=== PATIENT | male | born 1985 | race Caucasian/White ===

== ENCOUNTER 2019-10-08 08:36 | Inpatient (IN) ==
[2019-10-08] MEDS ORDERED: ONDANSETRON INJ 2 MG/ML 2 ML VIAL IV STA (09:06)
[2019-10-08] MEDS ORDERED: MoRPHine SULFATE 4 MG/ML 1 ML CARP\\VIAL IV STA ×2 (09:06→12:36)
--- NOTE | 2019-10-08 09:11 | Emergency Department Note ---
Impression & Plan Acute pancreatitis, Hypokalemia, Abdominal pain ED Provider Note CHIEF COMPLAINT: Abdominal pain, nausea and vomiting HISTORY OF PRESENTING ILLNESS: This is a 34-year-old male who presents to the emergency department by private vehicle with complaint of upper abdominal pain with nausea and vomiting for the past 2 days. Patient states he felt unwell over the weekend on Sunday, but then felt better on Sunday. He notes that his last bowel movement was on Sunday and he has been feeling constipated. He has been taking MiraLAX, noting that he has taken half a bottle over the past few days, as well as stool softeners, and he tried an enema last night, with no improvement in his pain and no bowel movement. He states the pain is constant, across the upper abdomen and most severe in the epigastric region, and rates the pain a 7/10. He has also tried Pepto-Bismol and [id number] nausea medicine without improvement. He denies any fevers or chills. He denies any chest pain, shortness of breath, cough or URI symptoms. He denies any recent travel, known sick contacts or concerns for COVID-19. He denies urinary symptoms or unusual rash. REVIEW OF SYSTEMS: A complete 10 point review of systems was reviewed with the patient with pertinent positives and negatives as per history of present illness. All else were negative. PAST MEDICAL HISTORY: Hypertension, GERD SOCIAL HISTORY: Lives at home, he is a smoker, lives in [place], but has been visiting for the past month with family ALLERGIES: Reviewed in chart and with the patient PHYSICAL EXAM: CONSTITUTIONAL: Pleasant and cooperative. Nontoxic-appearing and in no acute distress, but appears uncomfortable from the pain. Mildly dehydrated. HEENT: Normocephalic, atraumatic. Pharynx normal. Tacky mucous membranes. NECK: Supple, full active range of motion without discomfort. RESPIRATORY: Clear to auscultation bilaterally with no wheezing, crackles, rhonchi or stridor. Equal expansion bilaterally. CARDIOVASCULAR: Regular rate and rhythm with no murmurs, rubs or gallops. Normal peripheral perfusion. No edema. GASTROINTESTINAL: Tender to palpation in the epigastric region and left upper quadrant, mildly tender in the right upper quadrant. The abdomen is otherwise nontender, soft, slightly distended. Obese abdomen. No palpable masses or HSM. Bowel sounds present in all quadrants. No CVA tenderness bilaterally. MUSCULOSKELETAL: Full range of motion of all joints without discomfort. INTEGUMENTARY: No rash or other significant dermatologic conditions noted. NEUROLOGIC: Alert and oriented X 4 with normal affect. Normal strength and sensation in all 4 extremities. Normal speech. Normal gait observed. ED COURSE AND MEDICAL DECISION MAKING: CC: Patient presenting with complaint of abdominal pain, nausea and vomiting DIFFERENTIAL DIAGNOSIS: Includes, but not limited to gastroenteritis, gas tritis, peptic ulcer disease, GERD, pancreatitis, cholecystitis, cholelithiasis, small bowel obstruction, infectious colitis, constipation, fecal impaction, among others. INTERPRETATION OF LABS: Marked leukocytosis with left shift, no anemia, normal platelets, mild hypokalemia, no other significant electrolyte abnormalities, normal renal function, normal liver enzymes and lipase. Troponin is und etectable. UA shows protein, ketones, and blood, with no evidence for infection. IMAGING: CT OF THE ABDOMEN AND PELVIS WITH CONTRAST CLINICAL HISTORY: Abdominal pain, nausea and vomiting. Constipation. COMPARISON STUDY: None. TECHNIQUE: Following IV administration of 93 mL of Optiray-320, axial images of the abdomen and pelvis were obtained from the lung bases to the proximal femurs. Images were reviewed in the axial, sagittal, and coronal planes. IV contrast was administered without complication. Automated exposure control was utilized for the study. A dose lowering technique was utilized adhering to the principles of ALARA. CT DOSE: 1634.58 mGy.cm FINDINGS: Lung bases are unremarkable. No pneumatosis, free air or portal venous gas is present. There is fatty infiltration of the liver. No biliary or pancreatic ductal dilatation is noted. There is mild infiltration adjacent to the pancreatic tail. There is slight prominence of the pancreatic tail. No peripancreatic fluid collection is noted. The gland enhances homogeneously. The spleen, adrenal glands and kidneys are normal. There is no hydronephrosis or hydroureter. No pericholecystic infiltration is present. There is no evidence for a bowel obstruction. The caliber and wall thickness of small and large bowel are normal the appendix is normal. There is mild infiltration of the subcutaneous tissues of the lower back which probably reflects soft tissue edema. A tiny metallic density is noted along the superficial aspect of the paraspinal musculature. There are bilateral L5 pars defects without significant anterolisthesis of L5 on S1. Suspected central canal stenosis at L3-L4 suboptimally assessed by CT. There is suspected disc bulges at L4-L5. IMPRESSION: 1. Mild infiltration adjacent to the pancreatic tail. This suggests acute pancreatitis. 2. Normal appendix. No bowel obstruction. 3. Fatty infiltration of the liver. 4. Multilevel degenerative changes within lumbar spine with suspected central canal stenosis at L3-L4 which is suboptimally assessed by CT. ----- US gallbladder HISTORY: Pain. Nausea. epigastric pain COMPARISON: None. FINDINGS: Gallbladder is normal. Common bile duct 5 mm. Fatty infiltration of liver. Pancreas is unremarkable. The right kidney is negative for hydronephrosis. IMPRESSION: 1. Fatty infiltration of liver. 2. Otherwise negative study. EKG: Shows normal sinus rhythm with a rate of 93 bpm, normal intervals, no ST or T wave abnormalities, no ectopy by my interpretation. No previous EKG available for comparison. MEDICATION RECONCILIATION: I attest that I have personally reviewed the patient's current medication list. INITIAL VITAL SIGNS REVIEW: I reviewed the patient's initial vital signs and interpret them as follows: T: Afebrile; BP: Hypertensive; HR: Tachycardic; RR: Within normal limits; Pulse Ox: Within normal limits on room air. Blood pressure screening: The patient was found to have an elevated blood pressure and was referred to the inpatient team for further management. MDM SUMMARY: Patient was evaluated at bedside, history and physical exam performed. Patient is alert and oriented, in no acute distress, resting calmly in stretcher. Patient is afebrile and nontoxic-appearing, but does appear to be uncomfortable from pain. He is significantly tender to palpation in the epigastric and left upper quadrant, the remainder of the abdomen is benign. No acute abdomen. Cardiac monitoring: An order was placed for continuous cardiac monitoring. The monitor shows a rate of 91 bpm with normal sinus rhythm. An EKG was reviewed at bedside noting normal sinus rhythm with no acute ischemic changes. Orders were placed at bedside for labs, UA, IV fluid bolus for hydration, IV morphine for pain, IV Zofran for nausea, CT abdomen/pelvis with IV contrast to evaluate for this abdominal pain. Patient discussed with Dr. Antonio, who agrees with my assessment, plan, and disposition. Labs and imaging reviewed as above, labs notable for a marked leukocytosis with left shift, otherwise fairly unremarkable. Liver enzymes and lipase are all normal. Troponin is undetectable. Additional orders were placed for blood cultures, lactic acid, and empiric antibiotics IV Cipro and Flagyl. CT imaging reviewed, noting infiltration around the pancreatic tail suggestive of acute pancreatitis and otherwise unremarkable. An ultrasound of the gallbladder was also performed, which did not show any acute gallbladder abnormalities. Given the patient's significant leukocytosis in the setting of acute pancreatitis, I did feel that he would benefit from hospitalization. I spoke with the hospitalist team, who agrees to evaluate the patient for admission. Patient reassessed multiple times throughout ED stay, he has remained hemodynami romie stable and afebrile, and his pain is improved with IV morphine. He has not had any further vomiting. The patient was updated on all results and plan for admission, he verbalized understanding and was agreeable to this plan. The patient was stable at time of admission. The chart was completed utilizing [employer] Speech voice recognition software. Grammatical errors, random word insertions, pronoun errors, and incomplete sentences are an occasional consequence of this system due to software limitations, ambient noise, and hardware issues. Any formal questions or concerns about the content, text, or information contained within the body of this dictation should be directly addressed to the nurse practitioner for clarification. Past Med/Surg History Medical History (Updated 10/08/19 @ 17:13 by GERMAIN Alfredo) GERD (gastroesophageal reflux disease) Hypertension Obesity (BMI 30-39.9) Surgical History (Updated 10/08/19 @ 14:19 by Jennifer Sidhu MD) History of herniorrhaphy Previous back surgery Family History (Updated 10/08/19 @ 14:19 by Jennifer Sidhu MD) Grandmother Heart disease Social History Preferred Language: Hebrew Communication Ability: Effective Screening Nurse Required: No Beliefs That Will Affect Care: None Current Living Situation: Alone Other Information That Helps Us Care for You: No Feels Safe at Home: Yes Smoking Status: Current every day smoker Tobacco Type: cigars ; Cigarettes Per Day: 1 cigar/day ; Do You Dip or Chew Tobacco: No ; Second Hand Exposure: Yes ; Tobacco Cessation Education Requested by Patient: No Hx Alcohol Use: Yes Alcohol type: beer Hx Substance Use: Yes substance use type: marijuana Last Used Substance: Unknown Allergies Allergies Allergy/AdvReac Type Severity Reaction Status Date / Time amoxicillin AdvReac Intermediate Nausea Verified 10/08/19 13:02 Home Meds Home Medications Medication Instructions Recorded Confirmed cyclobenzaprine 10 mg PO DIRECTED PRN 10/08/19 10/08/19 hydrochlorothiazide 25 mg PO QAM 10/08/19 10/08/19 lisinopril 40 mg PO DAILY 10/08/19 10/08/19 pantoprazole 40 mg PO DAILY 10/08/19 10/08/19 Results & Data (ED) Vital Signs Vital Signs - 24 hr 10/08/19 08:41 10/08/19 09:54 10/08/19 09:55 Temperature 36.8 C Temperature Source Oral Pulse Rate 103 H Pulse Rate [Finger] 80 Pulse Rate from SpO2 Sensor Pulse Rhythm [Finger] Pulse Strength [Finger] Respiratory Rate 20 20 Respiratory Effort / Characteristics Respiratory Depth Respiratory Pattern Blood Pressure 161/105 H Blood Pressure [Left Arm] 148/87 H Blood Pressure Mean 123 Blood Pressure Mean [Left Arm] 107 Pulse Oximetry 99 98 98 Oxygen Delivery Method Room Air Room Air Sepsis Recent Fever Within 48 Hours No Sepsis New/Unexplained Change in Mental Status No Sepsis Action Taken by Nursing No Action Required 10/08/19 11:10 10/08/19 11:13 10/08/19 11:30 Temperature Temperature Source Pulse Rate 81 77 Pulse Rate [Finger] 83 Pulse Rate from SpO2 Sensor 81 76 Pulse Rhythm [Finger] Regular Pulse Strength [Finger] Normal Respiratory Rate 16 18 13 Respiratory Effort / Characteristics Non-Labored Spontaneous Respiratory Depth Normal Respiratory Pattern Regular Blood Pressure 130/91 122/94 Blood Pressure [Left Arm] 130/91 Blood Pressure Mean 101 103 Blood Pressure Mean [Left Arm] 104 Pulse Oximetry 97 97 98 Oxygen Delivery Method Room Air Room Air Room Air Sepsis Recent Fever Within 48 Hours Sepsis New/Unexplained Change in Mental Status Sepsis Action Taken by Nursing 10/08/19 12:30 Temperature Temperature Source Pulse Rate 81 Pulse Rate [Finger] Pulse Rate from SpO2 Sensor 83 Pulse Rhythm [Finger] Pulse Strength [Finger] Respiratory Rate 9 L Respiratory Effort / Characteristics Respiratory Depth Respiratory Pattern Blood Pressure 150/102 H Blood Pressure [Left Arm] Blood Pressure Mean 114 Blood Pressure Mean [Left Arm] Pulse Oximetry 98 Oxygen Delivery Method Sepsis Recent Fever Within 48 Hours Sepsis New/Unexplained Change in Mental Status Sepsis Action Taken by Nursing Laboratory Data Result diagrams: 10/08/19 09:24 10/08/19 09:24 Lab Results 10/08/19 10/08/19 10/08/19 Range/Units 09:24 09:24 09:33 WBC 29.27 H (4.8-10.8) K/uL RBC 5.82 (4.7-6.1) M/uL Hgb 17.6 (14.0-18.0) g/dL Hct 50.6 (42-52) % MCV 86.9 (80-100) fL MCH 30.2 (25-34) pg MCHC 34.8 (32-36) g/dL RDW Std Deviation 47.0 H (36.4-46.3) fL RDW Coeff of [place] 14.9 H (11.5-14.5) % Plt Count 347 (130-400) K/uL MPV 11.5 H (7.4-10.4) fL Immature Gran % (Auto) 1.0 % Neut % (Auto) 75.6 % Lymph % (Auto) 13.2 % [place] % (Auto) 10.0 % Eos % (Auto) 0.1 % Baso % (Auto) 0.1 % Neut # (Auto) 22.11 H (1.4-6.5) K/uL Lymph # (Auto) 3.86 H (1.2-3.4) K/uL [place] # (Auto) 2.92 H (0.11-0.59) K/uL Eos # (Auto) 0.04 (0-0.5) K/uL Baso # (Auto) 0.04 (0-0.2) K/uL Immature Gran # (Auto) 0.30 H (0.00-0.02) K/uL Sodium 137 (136-145) mmol/L Potassium 3.3 L (3.5-5.1) mmol/L Chloride 102 (98-107) mmol/L Carbon Dioxide 27 (21-32) mmol/L Anion Gap 8.0 (3-11) BUN 11 (7-18) mg/dl Creatinine 0.99 (0.6-1.4) mg/dl Est Cr Clr Drug Dosing 141.5 ml/min Est GFR ( Amer) 114.7 Est GFR (Non-Af Amer) 99.0 BUN/Creatinine Ratio 10.9 (10-20) Glucose 125 H (70-99) mg/dl Lactate (0.4-2.0) mmol/L Calcium 9.7 (8.5-10.1) mg/dl Magnesium 2.2 (1.8-2.4) mg/dl Total Bilirubin 0.7 (0.2-1) mg/dl AST 9 L (15-37) U/L ALT 29 (12-78) U/L Alkaline Phosphatase 78 (45-117) U/L Troponin I < 0.015 (0-0.045) ng/ml Total Protein 8.4 H (6.4-8.2) gm/dl Albumin 4.2 (3.4-5.0) gm/dl Globulin 4.2 H (2.5-4.0) gm/dl Albumin/Globulin Ratio 1.0 (0.9-2) Triglycerides 154 H (0-150) mg/dl Lipase 132 (73-393) U/L Urine Color Urine Appearance (Clear) Urine pH (4.5-7.5) Ur Specific [place] (1.000-1.030) Urine Protein (Negative) Urine Glucose (UA) (Negative) Urine Ketones (Negative) Urine Blood (Negative) Urine Nitrite (Negative) Urine Bilirubin (Negative) Urine Urobilinogen (Negative) Ur Leukocyte Esterase (Negative) Urine WBC (Auto) (0-5) /hpf Urine RBC (Auto) (0-4) /hpf U Hyaline Cast (Auto) (0-5) /lpf U Epithel Cells (Auto) (0-5) /lpf Urine Bacteria (Auto) (Negative) 10/08/19 10/08/19 Range/Units 09:55 12:38 WBC (4.8-10.8) K/uL RBC (4.7-6.1) M/uL Hgb (14.0-18.0) g/dL Hct (42-52) % MCV (80-100) fL MCH (25-34) pg MCHC (32-36) g/dL RDW Std Deviation (36.4-46.3) fL RDW Coeff of [place] (11.5-14.5) % Plt Count (130-400) K/uL MPV (7.4-10.4) fL Immature Gran % (Auto) % Neut % (Auto) % Lymph % (Auto) % [place] % (Auto) % Eos % (Auto) % Baso % (Auto) % Neut # (Auto) (1.4-6.5) K/uL Lymph # (Auto) (1.2-3.4) K/uL [place] # (Auto) (0.11-0.59) K/uL Eos # (Auto) (0-0.5) K/uL Baso # (Auto) (0-0.2) K/uL Immature Gran # (Auto) (0.00-0.02) K/uL Sodium (136-145) mmol/L Potassium (3.5-5.1) mmol/L Chloride (98-107) mmol/L Carbon Dioxide (21-32) mmol/L Anion Gap (3-11) BUN (7-18) mg/dl Creatinine (0.6-1.4) mg/dl Est Cr Clr Drug Dosing ml/min Est GFR ( Amer) Est GFR (Non-Af Amer) BUN/Creatinine Ratio (10-20) Glucose (70-99) mg/dl Lactate 1.3 (0.4-2.0) mmol/L Calcium (8.5-10.1) mg/dl Magnesium (1.8-2.4) mg/dl Total Bilirubin (0.2-1) mg/dl AST (15-37) U/L ALT (12-78) U/L Alkaline Phosphatase (45-117) U/L Troponin I (0-0.045) ng/ml Total Protein (6.4-8.2) gm/dl Albumin (3.4-5.0) gm/dl Globulin (2.5-4.0) gm/dl Albumin/Globulin Ratio (0.9-2) Triglycerides (0-150) mg/dl Lipase (73-393) U/L Urine Color Dark Yellow Urine Appearance Clear (Clear) Urine pH 5.5 (4.5-7.5) Ur Specific [place] 1.023 (1.000-1.030) Urine Protein 2+ H (Negative) Urine Glucose (UA) Negative (Negative) Urine Ketones Trace H (Negative) Urine Blood Trace H (Negative) Urine Nitrite Negative (Negative) Urine Bilirubin Negative (Negative) Urine Urobilinogen Negative (Negative) Ur Leukocyte Esterase Negative (Negative) Urine WBC (Auto) 1-5 (0-5) /hpf Urine RBC (Auto) 5-10 H (0-4) /hpf U Hyaline Cast (Auto) 5-10 H (0-5) /lpf U Epithel Cells (Auto) 10-20 H (0-5) /lpf Urine Bacteria (Auto) Negative (Negative) Administered Medications Lactated Ringer's (Lr) 1,000 mls @ 200 mls/hr IV .Q5H LUCIUS Stop: 11/07/19 18:05 Last Infusion: 10/08/19 19:21 Dose: 200 mls/hr Documented by: [id number] Admin: 10/08/19 18:26 Dose: 200 mls/hr Documented by: [id number] Potassium Chloride (K Alan / Wtr) 10 meq in 100 mls @ 100 mls/hr IV Q1H LUCIUS Stop: 10/08/19 22:29 Last Admin: 10/08/19 20:07 Dose: 75 mls/hr Documented by: [id number] Infusion: 10/08/19 20:03 Dose: 75 mls/hr Documented by: [id number] Admin: 10/08/19 18:43 Dose: 75 mls/hr Documented by: [id number] Ketorolac Tromethamine (Toradol) 15 mg IM Q8H PRN PRN Reason: Moderate Pain Stop: 10/13/19 18:53 Last Admin: 10/08/19 19:41 Dose: 15 mg Documented by: [id number] Morphine Sulfate (Morphine Sulfate) 2 mg IV Q6H PRN PRN Reason: Moderate Pain Stop: 10/22/19 18:05 Last Admin: 10/08/19 18:26 Dose: 2 mg Documented by: [id number] Ondansetron HCl (Zofran) 4 mg IV Q6H PRN PRN Reason: Nausea Stop: 11/07/19 14:00 Last Admin: 10/08/19 18:26 Dose: 4 mg Documented by: [id number] Discontinued Medications Sodium Chloride (Nss 1000ml) 1,000 mls @ 999 mls/hr IV .Q1H1M LUCIUS Stop: 10/08/19 10:15 Last Infusion: 10/08/19 11:09 Dose: 0 mls/hr Documented by: [id number] Admin: 10/08/19 09:51 Dose: 999 mls/hr Documented by: [id number] Sodium Chloride (Nss 1000ml) 1,000 mls @ 999 mls/hr IV .Q1H1M ONE Stop: 10/08/19 13:36 Last Infusion: 10/08/19 15:42 Dose: 0 mls/hr Documented by: [id number] Admin: 10/08/19 14:31 Dose: 999 mls/hr Documented by: [id number] Ciprofloxacin (Cipro) 400 mg in 200 mls @ 200 mls/hr IV NOW STA Stop: 10/08/19 13:54 Last Infusion: 10/08/19 16:10 Dose: 0 mls/hr Documented by: [id number] Admin: 10/08/19 14:31 Dose: 200 mls/hr Documented by: [id number] Metronidazole (Flagyl) 500 mg in 100 mls @ 100 mls/hr IV NOW STA Stop: 10/08/19 13:54 Last Infusion: 10/08/19 15:42 Dose: 0 mls/hr Documented by: [id number] Admin: 10/08/19 14:31 Dose: 100 mls/hr Documented by: [id number] Ioversol (Optiray 320 100ml) 93 ml IV ONCE PRN PRN Reason: Interaction Checking Stop: 10/12/19 10:23 Last Admin: 10/08/19 10:25 Dose: 93 ml Documented by: [id number] Morphine Sulfate (Morphine Sulfate) 4 mg IV NOW STA Stop: 10/08/19 09:07 Last Admin: 10/08/19 09:51 Dose: 4 mg Documented by: [id number] Morphine Sulfate (Morphine Sulfate) 4 mg IV NOW STA Stop: 10/08/19 12:37 Last Admin: 10/08/19 14:31 Dose: 4 mg Documented by: [id number] Ondansetron HCl (Zofran) 4 mg IV NOW STA Stop: 10/08/19 09:07 Last Admin: 10/08/19 09:51 Dose: 4 mg Documented by: [id number] Discharge Plan Visit Data *Final* Discharge Date/Time: 10/08/19 17:22 Chief Complaint: Abdominal Pain Stated Complaint: ACUTE ABD PAIN ED Provider: Matilda Antonio ED Midlevel Provider: Jordyn Wheatley Discharge Problem: Acute pancreatitis, Hypokalemia, Abdominal pain Patient Disposition: Admitted As Inpatient Discharge Instructions Interventions: ED Discharge Assessment Last Done: 10/08/19 17:22 Discharge Problem: Acute pancreatitis Qualifiers: Pancreatitis type: unspecified pancreatitis type Acute pancreatitis complic ation: unspecified Qualified Code(s): K85.90 - Acute pancreatitis without necrosis or infection, unspecified Abdominal pain Qualifiers: Abdominal location: epigastric Qualified Code(s): R10.13 - Epigastric pain
[2019-10-08] MEDS ORDERED: SODIUM CHLORIDE 0.9% 1000ML 1,000 ML IV SCH (09:15)
[2019-10-08 09:37] LABS: Hematocrit (blood only) 50.6 % (42-52); Hemoglobin 17.6 g/dL (14.0-18.0); Mean Corpuscular Hemoglobin 30.2 pg (25-34); Mean Corpuscular Hgb Conc 34.8 g/dL (32-36); Mean Corpuscular Volume 86.9 fL (80-100); Mean Platelet Volume 11.5 fL (7.4-10.4); Platelet Count 347 K/uL (130-400); RDW Coefficient of Variation 14.9 % (11.5-14.5); Red Blood Count 5.82 M/uL (4.7-6.1); White Blood Count 29.27 K/uL (4.8-10.8)
[2019-10-08 09:59] LABS: Alanine Aminotransferase 29 U/L (12-78); Albumin Level 4.2 gm/dl (3.4-5.0); Aspartate Aminotransferase 9 U/L (15-37); BUN Creatinine Ratio 10.9 (10-20); Blood Urea Nitrogen 11 mg/dl (7-18); Calcium 9.7 mg/dl (8.5-10.1); Carbon Dioxide 27 mmol/L (21-32); Chloride 102 mmol/L (98-107); Creatinine Clr Calc Pharmacy 141.5 ml/min; Est GFR (African American) 114.7; Glucose 125 mg/dl (70-99); Lipase 132 U/L (73-393); Potassium 3.3 mmol/L (3.5-5.1); Sodium 137 mmol/L (136-145)
[2019-10-08 10:03] LABS: Alkaline Phosphatase 78 U/L (45-117); Bilirubin,Total 0.7 mg/dl (0.2-1); Globulin 4.2 gm/dl (2.5-4.0); Total Protein 8.4 gm/dl (6.4-8.2); Troponin I < 0.015 ng/ml (0-0.045)
[2019-10-08 10:13] LABS: Basophils # (auto) 0.04 K/uL (0-0.2); Basophils % (auto) 0.1 %; Eosinophils # (auto) 0.04 K/uL (0-0.5); Eosinophils % (auto) 0.1 %; Lymphocytes # (auto) 3.86 K/uL (1.2-3.4); Lymphocytes % (auto) 13.2 %; Monocytes # (auto) 2.92 K/uL (0.11-0.59); Neutrophils # (auto) 22.11 K/uL (1.4-6.5); Neutrophils % (auto) 75.6 %
[2019-10-08 10:21] LABS: Appearance Urine Clear (Clear); Bacteria Urine Automated Negative (Negative); Bilirubin Urine Negative (Negative); Blood Urine Trace (Negative); Color Urine Dark Yellow; Glucose Urine UA Negative (Negative); Ketones Urine Trace (Negative); Leukocyte Esterase Urine Negative (Negative); Nitrite Urine Negative (Negative); Protein Urine 2+ (Negative); Specific Gravity Urine 1.023 (1.000-1.030); Urobilinogen Urine Negative (Negative); pH Urine 5.5 (4.5-7.5)
[2019-10-08] MEDS ORDERED: IOVERSOL 100ml IV PRN (10:24)
--- NOTE | 2019-10-08 10:46 | CT Scan Report ---
CT OF THE ABDOMEN AND PELVIS WITH CONTRAST CLINICAL HISTORY: Abdominal pain, nausea and vomiting. Constipation. COMPARISON STUDY: None. TECHNIQUE: Following IV administration of 93 mL of Optiray-320, axial images of the abdomen and pelvi s were obtained from the lung bases to the proximal femurs. Images were reviewed in the axial, sagitt al, and coronal planes. IV contrast was administered without complication. Automated exposure contro l was utilized for the study. A dose lowering technique was utilized adhering to the principles of A REGINA. CT DOSE: 1634.58 mGy.cm FINDINGS: Lung bases are unremarkable. No pneumatosis, free air or portal venous gas is present. Ther e is fatty infiltration of the liver. No biliary or pancreatic ductal dilatation is noted. There is m ild infiltration adjacent to the pancreatic tail. There is slight prominence of the pancreatic tail. No peripancreatic fluid collection is noted. The gland enhances homogeneously. The spleen, adrenal gl ands and kidneys are normal. There is no hydronephrosis or hydroureter. No pericholecystic infiltrati on is present. There is no evidence for a bowel obstruction. The caliber and wall thickness of small and large bowel are normal the appendix is normal. There is mild infiltration of the subcutaneous tis sues of the lower back which probably reflects soft tissue edema. A tiny metallic density is noted al yuli the superficial aspect of the paraspinal musculature. There are bilateral L5 pars defects without significant anterolisthesis of L5 on S1. Suspected central canal stenosis at L3-L4 suboptimally asse ssed by CT. There is suspected disc bulges at L4-L5. IMPRESSION: 1. Mild infiltration adjacent to the pancreatic tail. This suggests acute pancreatitis. 2. Normal appendix. No bowel obstruction. 3. Fatty infiltration of the liver. 4. Multilevel degenerative changes within lumbar spine with suspected central canal stenosis at L3-L4 which is suboptimally assessed by CT. ACT 112: Negative or not required by law. Electronically signed by: Cesario Fuentes M.D. 10/08/2019 10:45 AM
--- NOTE | 2019-10-08 12:07 | Ultrasound Report ---
US gallbladder HISTORY: Pain. Nausea. epigastric pain COMPARISON: None. FINDINGS: Gallbladder is normal. Common bile duct 5 mm. Fatty infiltration of liver. Pancreas is unremarkable. The right kidney is negative for hydronephrosis. IMPRESSION: 1. Fatty infiltration of liver. 2. Otherwise negative study. ACT 112: Negative or not required by law. The above report was generated using voice recognition software. It may contain grammatical, syntax or spelling errors. Electronically signed by: Kirby Engle M.D. 10/08/2019 12:06 PM
[2019-10-08] MEDS ORDERED: SODIUM CHLORIDE 0.9% 1000ML 1,000 ML IV ONE (12:36)
[2019-10-08] MEDS ORDERED: metroNIDAZOLE 500 MG/100 ML BAG IV STA (12:55)
[2019-10-08] MEDS ORDERED: CIPROFLOXACIN / D5W 400 MG/200 ML BAG IV STA (12:55)
[2019-10-08] MEDS ORDERED: ACETAMINOPHEN 325 MG TAB PO PRN (14:01)
[2019-10-08] MEDS ORDERED: ONDANSETRON INJ 2 MG/ML 2 ML VIAL IV PRN (14:01)
--- NOTE | 2019-10-08 14:33 | History & Physical Report ---
Date of Service October 08, 2019 Assessment & Plan (1) Abdominal pain: (2) Acute pancreatitis: Abdominal pain, nausea, vomiting Leukocytosis of 29K CT abdomen and pelvis suggestive of mild infiltration adjacent to pancreatic tail suggestive of acute pancreatitis Gallbladder ultrasound does not show any gallstones. Lipase was not elevated 132. Will monitor Symptoms and findings likely due to acute pancreatitis. Patient denies any alcohol use. Cipro and Flagyl ordered in ER. Will monitor off antibiotics for now Follow up blood cultures in lab Patient reports that his white blood cell count runs high [ranges from 12 K to 17 K] and has had evaluation for possible leukemia/cancer down in [place] with all test coming back negative Will monitor leukocytosis for now Continue IVF for now NPO for now Will appreciate GI consult Considering GI symptoms and patient being a [place] resident, will get COVID19 testing (3) Hypokalemia: K is 3.3 likely from poor intake and GI losses Replete and monitor Check Mag (4) Obesity (BMI 30-39.9): CT Abd/pelvis suggestive of fatty infiltration of liver Educated patient about this Counselled on need for weight loss Counselled on need for smoking cessation (5) Hypertension: Currently controlled Will continue lisinopril only for now from tomorrow (6) GERD (gastroesophageal reflux disease): Continue pantoprazole (7) DVT prophylaxis: Ambulate Lovenox sq for now History of Present Illness 34-year-old man with hypertension, GERD, morbid obesity who presented with abdominal pain, nausea and vomiting. Patient reported that abdominal pain started 4 days ago associated with fatigue. Pain is mostly in the epigastrium and sometimes on the left side of abdomen, initially mild and worsened over the last day, at its worst can get up to 7-8 over 10, not referred. Was associated with nausea and multiple bouts of nonbloody emesis yesterday as well as chills and profuse sweating overnight. Patient denied any diarrhea. Has not had any bowel movement for few days until coming to the ER where he has had mucousy stool. Denied any hematemesis, melena, hematochezia. Denied any fevers Denied any change in diet Denied any chest pain, cough, shortness of breath Denied any headaches, dizziness, blurry vision Denies any contact with anybody with COVID Patient lives in [place], currently visiting family in [facility] in the past month. Denied any alcohol use. Reports he smokes cigar 1/day Also uses marijuana which he says he grows himself. Denied any illicit drug use. Primary Care Provider: NO PCP Allergies Allergy/AdvReac Type Severity Reaction Status Date / Time amoxicillin AdvReac Intermediate Nausea Verified 10/08/19 13:02 Home Medications Home Medications Medication Instructions Recorded Confirmed Type cyclobenzaprine 10 mg PO DIRECTED PRN 10/08/19 10/08/19 History hydrochlorothiazide 25 mg PO QAM 10/08/19 10/08/19 History lisinopril 40 mg PO DAILY 10/08/19 10/08/19 History pantoprazole 40 mg PO DAILY 10/08/19 10/08/19 History Past Med/Surg History Medical History (Updated 10/08/19 @ 14:25 by Jennifer Sidhu MD) GERD (gastroesophageal reflux disease) Hypertension Obesity (BMI 30-39.9) Surgical History (Updated 10/08/19 @ 14:19 by Jennifer Sidhu MD) History of herniorrhaphy Previous back surgery Family History (Updated 10/08/19 @ 14:19 by Jennifer Sidhu MD) Grandmother Heart disease Social History Feels Safe at Home: Yes Smoking Status: Current some day smoker Review of Systems Constitutional: + chills, + fatigue and + anorexia; no fever Eyes: no problem reported Ear, Nose, Mouth, Throat: no problem reported Respiratory: no cough, no chest congestion, no dyspnea, no dyspnea on exertion and no hemoptysis Cardiovascular: no chest pain, no chest pain at rest, no chest pain with activity, no dyspnea at rest and no dyspnea on exertion Gastrointestinal: + abdominal pain, + nausea and + vomiting; no coffee ground emesis and no blood in stools Genitourinary: no problem reported Musculoskeletal: no problem reported Neurologic: no problem reported Physical Exam Constitutional: + well hydrated and + obese; no acute distress Eyes: PERRL, conjunctivae normal, anicteric sclerae ENMT: external ear and nose normal, oropharynx normal Respiratory: normal respiratory effort, lungs clear to auscultation Cardiovascular: RRR, no murmur, no edema Gastrointestinal (Abdomen): Inspection/Auscultation: abdomen normal to i nspection and normal bowel sounds; abdomen not distended Percussion/Palpation: + abdomen tender (Epigastric) and abdomen soft; no guarding and abdomen not rigid Musculoskeletal: no cyanosis or clubbing, extremities motor strength 5/5 Neurologic: PERRL, EOMI, accommodation nl, no face palsy, no dysarthria Psychiatric: A+Ox3, euthymic affect Results & Data Results & Data ([facility]) Vital Signs (Past 12 Hours) Vital Signs Temp Pulse Pulse Resp BP BP Pulse Ox 10/08/19 11:30 77 13 122/94 98 10/08/19 11:13 83 18 130/91 97 10/08/19 11:10 81 16 130/91 97 10/08/19 09:55 98 10/08/19 09:54 80 20 148/87 H 98 10/08/19 08:41 36.8 C 103 H 20 161/105 H 99 Laboratory Results Laboratory Results - last 24 hr 10/08/19 10/08/19 10/08/19 09:24 09:24 09:55 WBC 29.27 H RBC 5.82 Hgb 17.6 Hct 50.6 MCV 86.9 MCH 30.2 MCHC 34.8 RDW Std Deviation 47.0 H RDW Coeff of Roldan 14.9 H Plt Count 347 MPV 11.5 H Immature Gran % (Auto) 1.0 Neut % (Auto) 75.6 Lymph % (Auto) 13.2 [place] % (Auto) 10.0 Eos % (Auto) 0.1 Baso % (Auto) 0.1 Neut # (Auto) 22.11 H Lymph # (Auto) 3.[address] # (Auto) 2.92 H Eos # (Auto) 0.04 Baso # (Auto) 0.04 Immature Gran # (Auto) 0.30 H Sodium 137 Potassium 3.3 L Chloride 102 Carbon Dioxide 27 Anion Gap 8.0 BUN 11 Creatinine 0.99 Est Cr Clr Drug Dosing 141.5 Est GFR ( Amer) 114.7 Est GFR (Non-Af Amer) 99.0 BUN/Creatinine Ratio 10.9 Glucose 125 H Lactate Calcium 9.7 Total Bilirubin 0.7 AST 9 L ALT 29 Alkaline Phosphatase 78 Troponin I < 0.015 Total Protein 8.4 H Albumin 4.2 Globulin 4.2 H Albumin/Globulin Ratio 1.0 Lipase 132 Urine Color Dark Yellow Urine Appearance Clear Urine pH 5.5 Ur Specific [place] 1.023 Urine Protein 2+ H Urine Glucose (UA) Negative Urine Ketones Trace H Urine Blood Trace H Urine Nitrite Negative Urine Bilirubin Negative Urine Urobilinogen Negative Ur Leukocyte Esterase Negative Urine WBC (Auto) 1-5 Urine RBC (Auto) 5-10 H U Hyaline Cast (Auto) 5-10 H U Epithel Cells (Auto) 10-20 H Urine Bacteria (Auto) Negative 10/08/19 12:38 WBC RBC Hgb Hct MCV MCH MCHC RDW Std Deviation RDW Coeff of [place]oldan Plt Count MPV Immature Gran % (Auto) Neut % (Auto) Lymph % (Auto) [place] % (Auto) Eos % (Auto) Baso % (Auto) Neut # (Auto) Lymph # (Auto) [place] # (Auto) Eos # (Auto) Baso # (Auto) Immature Gran # (Auto) Sodium Potassium Chloride Carbon Dioxide Anion Gap BUN Creatinine Est Cr Clr Drug Dosing Est GFR ( Amer) Est GFR (Non-Af Amer) BUN/Creatinine Ratio Glucose Lactate 1.3 Calcium Total Bilirubin AST ALT Alkaline Phosphatase Troponin I Total Protein Albumin Globulin Albumin/Globulin Ratio Lipase Urine Color Urine Appearance Urine pH Ur Specific [place] Urine Protein Urine Glucose (UA) Urine Ketones Urine Blood Urine Nitrite Urine Bilirubin Urine Urobilinogen Ur Leukocyte Esterase Urine WBC (Auto) Urine RBC (Auto) U Hyaline Cast (Auto) U Epithel Cells (Auto) Urine Bacteria (Auto) Diagnostic Findings CT OF THE ABDOMEN AND PELVIS WITH CONTRAST CLINICAL HISTORY: Abdominal pain, nausea and vomiting. Constipation. COMPARISON STUDY: None. TECHNIQUE: Following IV administration of 93 mL of Optiray-320, axial images of the abdomen and pelvis were obtained from the lung bases to the proximal femurs. Images were reviewed in the axial, sagittal, and coronal planes. IV contrast was administered without complication. Automated exposure control was utilized for the study. A dose lowering technique was utilized adhering to the principles of ALARA. CT DOSE: 1634.58 mGy.cm FINDINGS: Lung bases are unremarkable. No pneumatosis, free air or portal venous gas is present. There is fatty infiltration of the liver. No biliary or pancreatic ductal dilatation is noted. There is mild infiltration adjacent to th e pancreatic tail. There is slight prominence of the pancreatic tail. No peripancreatic fluid collection is noted. The gland enhances homogeneously. The spleen, adrenal glands and kidneys are normal. There is no hydronephrosis or hydroureter. No pericholecystic infiltration is present. There is no evidence for a bowel obstruction. The caliber and wall thickness of small and large bowel are normal the appendix is normal. There is mild infiltration of the subcutaneous tissues of the lower back which probably reflects soft tissue edema. A tiny metallic density is noted along the superficial aspect of the paraspinal musculature. There are bilateral L5 pars defects without significant anterolisthesis of L5 on S1. Suspected central canal stenosis at L3-L4 suboptimally assessed by CT. There is suspected disc bulges at L4-L5. IMPRESSION: 1. Mild infiltration adjacent to the pancreatic tail. This suggests acute pancreatitis. 2. Normal appendix. No bowel obstruction. 3. Fatty infiltration of the liver. 4. Multilevel degenerative changes within lumbar spine with suspected central canal stenosis at L3-L4 which is suboptimally assessed by CT. US gallbladder HISTORY: Pain. Nausea. epigastric pain COMPARISON: None. FINDINGS: Gallbladder is normal. Common bile duct 5 mm. Fatty infiltration of liver. Pancreas is unremarkable. The right kidney is negative for hydronephrosis. IMPRESSION: 1. Fatty infiltration of liver. 2 Otherwise negative study.
--- NOTE | 2019-10-08 14:33 | Gastrointestinal Consultation ---
Date of Consultation October 08, 2019 Assessment & Plan (1) Abdominal pain: This is a 34 y/o male with PMHX morbid obesity, HTN, GERD, chronic leukocytosis (cause yet unknown), admitted with abd pain, WBC 29k (above baseline 12-17), and CT findings of mild infiltration adjacent to the pancreatic tail (suggesting acute pancreatitis), though lipase was WNL. This AM pt's symptoms are resolved; he tolerated breakfast; is afebrile and looks well. WBC count trending back toward his baseline and lipase, tbili and LFTs remain WNL. Etiology of his symptoms and CT findings not clear; imaging findings may reflect recent vomiting episode. We discussed diff dx of pancreatitis (most common being gallstones and ETOH, which do not appear to be in his case), hypertriglyeridemia rule out as his are 150), vs medications (HCTZ?), tobacco use, vs less likely causes such as AIH. - Would place on a low-fat diet - Continue PPI - Consider stopping HCTZ and switch to another agent - Urged pt to avoid tobacco; ETOH - With recurrent symptoms would f/u with GI in [place] where he lives - GI will sign off. Thank you for allowing us to participate in the care of this patient. Please call with any acute changes, questions or concerns. Please see addendum below with additional recommendation from my supervising physician. Supervising Physician Co-Signing Physician Notes I have seen and examined the patient and discussed the management with Savanna Giang PA-C. PE obese white male in nad, abd soft No further pain Agree with further plan of care as per Savanna's assessment and plan. History of Present Illness Reason for Consultation: pancreatitis Requesting Physician: This is a 34 y/o male with PMHx GERD, morbid obesity, HTN, chronic leukocytosis (cause unknown), admitted yesterday after presenting with 4 days of worsening epigastric abd pain, along with nausea and several bouts of nonbloody emesis, chills, sweating. No diarrhea. On arrival WBC 29k, lipase 132, normal LFTs, tbili. CT abdomen and pelvis suggestive of mild infiltration adjacent to pancreatic tail suggestive of acute pancreatitis, fatty liver. US ABD with "Gallbladder is normal. Common bile duct 5 mm. Fatty infiltration of liver. Pancreas is unremarkable." He was initially started Cipro/Flagyl but this was DC'd. BC pending. He was made NPO and kept on IVF overnight. This am reports his abd pain is resolved and he is feeling well. He tolerated a bowl of Cheerios this AM. WBC 19, LFTs, tbili, HGB, renal fxn WNL. Lipase 105. Triglycerides 150. Heartburn is controlled on daily PPI. Stools are regular, soft, brown. Denies nausea, vomiting, dysphagia, regurgitation, abd cramping, bloating, change in appetite, weight loss, acholic stools, dark urine, jaundice, easy bleeding. No fam hx pancreatic or GI malignancy. Has never had similar presentation. He smokes 1 cigar daily; smokes marijuana regularly. He takes HCTZ and lisinopril for HTN. Denies ETOH use, new medications. He lives in [place], he is here visiting his mom in [place]. COVID testing negative. He is driving back to [place] tomorrow. He is seeing hematology for chronic leukocytosis; he states they've "ruled out causes like leukemia, other cancers" and the cause is unknown. Allergies Allergy/AdvReac Type Severity Reaction Status Date / Time amoxicillin AdvReac Intermediate Nausea Verified 10/08/19 13:02 Home Medications Home Medications Medication Instructions Recorded Confirmed Type cyclobenzaprine 10 mg PO DIRECTED PRN 10/08/19 10/08/19 History hydrochlorothiazide 25 mg PO QAM 10/08/19 10/08/19 History lisinopril 40 mg PO DAILY 10/08/19 10/08/19 History pantoprazole 40 mg PO DAILY 10/08/19 10/08/19 History Patient History Medical History (Updated 10/09/19 @ 09:36 by Jennifer Sidhu MD) GERD (gastroesophageal reflux disease) Hypertension Obesity (BMI 30-39.9) Surgical History (Updated 10/08/19 @ 14:19 by Jennifer Sidhu MD) History of herniorrhaphy Previous back surgery Family History (Updated 10/08/19 @ 14:19 by Jennifer Sidhu MD) Grandmother Heart disease Social History Preferred Language: [place] Communication Ability: Effective Scenic Artist Required: No Beliefs That Will Affect Care: None Current Living Situation: Alone Other Information That Helps Us Care for You: No Feels Safe at Home: Yes Smoking Status: Current every day smoker Tobacco Type: cigars ; Cigarettes Per Day: 1 cigar/day ; Do You Dip or Chew Tobacco: No ; Second Hand Exposure: Yes ; Tobacco Cessation Education Requested by Patient: No Hx Alcohol Use: Yes Alcohol type: beer Hx Substance Use: Yes substance use type: marijuana Last Used Substance: Unknown Review of Systems Constitutional: no fever, no chills, no body aches and no weight loss Eyes: no icterus Respiratory: no cough and no dyspnea Cardiovascular: no chest pain, no dyspnea and no syncope Gastrointestinal: as per Subjective / HPI Genitourinary: no dysuria, no difficulty urinating and no hematuria Integumentary: + wounds; no rash, no lesions, no skin ulcer, no pruritus and no yellowing of the skin Endocrine: states he is pre-diabetic Hematologic / Lymphatic: as per Subjective / HPI; no easy bleeding and no easy bruising Physical Exam Constitutional: well developed and + obese; no acute distress Eyes: + anicteric sclerae Respiratory: normal respiratory effort, lungs clear to auscultation Cardiovascular: RRR, no murmur, no edema Gastrointestinal (Abdomen): normal bowel sounds, soft, nontender, no hepatosplenomegaly Inspection/Auscultation: abdomen not distended Skin: no rashes, warm and dry no jaundice Psychiatric: A+Ox3, euthymic affect Results & Data ([facility]) Vital Signs (Past 12 Hours) Vital Signs Temp Pulse Pulse Resp BP BP Pulse Ox 10/08/19 11:30 77 13 122/94 98 10/08/19 11:13 83 18 130/91 97 10/08/19 11:10 81 16 130/91 97 10/08/19 09:55 98 10/08/19 09:54 80 20 148/87 H 98 10/08/19 08:41 36.8 C 103 H 20 161/105 H 99 Laboratory Results 10/09/19 10/09/19 10/08/19 Range/Units 06:29 06:29 14:35 WBC 19.25 H D (4.8-10.8) K/uL RBC 5.08 (4.7-6.1) M/uL Hgb 15.2 (14.0-18.0) g/dL Hct 44.6 (42-52) % MCV 87.8 (80-100) fL MCH 29.9 (25-34) pg MCHC 34.1 (32-36) g/dL RDW Std Deviation 47.9 H (36.4-46.3) fL RDW Coeff of Roldan 14.9 H (11.5-14.5) % Plt Count 258 (130-400) K/uL MPV 11.6 H (7.4-10.4) fL Sodium 141 (136-145) mmol/L Potassium 4.0 D (3.5-5.1) mmol/L Chloride 108 H (98-107) mmol/L Carbon Dioxide 26 (21-32) mmol/L Anion Gap 7.0 (3-11) BUN 11 (7-18) mg/dl Creatinine 0.78 (0.6-1.4) mg/dl Est Cr Clr Drug Dosing 180.9 ml/min Est GFR ( Amer) 136.5 Est GFR (Non-Af Amer) 117.8 BUN/Creatinine Ratio 13.6 (10-20) Glucose 116 H (70-99) mg/dl Estimat Average Glucose mg/dl Hemoglobin A1c (4.5-5.6) % Lactate (0.4-2.0) mmol/L Calcium 8.6 (8.5-10.1) mg/dl Phosphorus 2.3 L (2.5-4.9) mg/dl Magnesium 1.9 (1.8-2.4) mg/dl Total Bilirubin 0.8 (0.2-1) mg/dl AST 10 L (15-37) U/L ALT 22 (12-78) U/L Alkaline Phosphatase 62 (45-117) U/L Total Protein 6.8 (6.4-8.2) gm/dl Albumin 3.1 L (3.4-5.0) gm/dl Globulin 3.7 (2.5-4.0) gm/dl Albumin/Globulin Ratio 0.8 L (0.9-2) Triglycerides (0-150) mg/dl Lipase 105 (73-393) U/L COVID-19 PCR NEGATIVE (Negative) 10/08/19 10/08/19 10/08/19 Range/Units 12:38 09:33 09:24 WBC (4.8-10.8) K/uL RBC (4.7-6.1) M/uL Hgb (14.0-18.0) g/dL Hct (42-52) % MCV (80-100) fL MCH (25-34) pg MCHC (32-36) g/dL RDW Std Deviation (36.4-46.3) fL RDW Coeff of Roldan (11.5-14.5) % Plt Count (130-400) K/uL MPV (7.4-10.4) fL Sodium (136-145) mmol/L Potassium (3.5-5.1) mmol/L Chloride (98-107) mmol/L Carbon Dioxide (21-32) mmol/L Anion Gap (3-11) BUN (7-18) mg/dl Creatinine (0.6-1.4) mg/dl Est Cr Clr Drug Dosing ml/min Est GFR ( Amer) Est GFR (Non-Af Amer) BUN/Creatinine Ratio (10-20) Glucose (70-99) mg/dl Estimat Average Glucose 143 mg/dl Hemoglobin A1c 6.6 H (4.5-5.6) % Lactate 1.3 (0.4-2.0) mmol/L Calcium (8.5-10.1) mg/dl Phosphorus (2.5-4.9) mg/dl Magnesium 2.2 (1.8-2.4) mg/dl Total Bilirubin (0.2-1) mg/dl AST (15-37) U/L ALT (12-78) U/L Alkaline Phosphatase (45-117) U/L Total Protein (6.4-8.2) gm/dl Albumin (3.4-5.0) gm/dl Globulin (2.5-4.0) gm/dl Albumin/Globulin Ratio (0.9-2) Triglycerides 154 H (0-150) mg/dl Lipase (73-393) U/L COVID-19 PCR (Negative) (1) Abdominal pain Abdominal location: epigastric Qualified Code(s): R10.13 - Epigastric pain
[2019-10-08 15:12] LABS: Magnesium 2.2 mg/dl (1.8-2.4)
--- NOTE | 2019-10-08 15:44 | Communication Note ---
Date of Service: October 08, 2019 GI consulted for pancreatitis; chart reviewed including imaging, lab results. Unknown etiology of presentation; recommend checking triglyceride levels, urine tox screen. Hydrate IVF with isolyte at 150-200 cc/hr if no CHF. Trend labs including CBC, CMP, lipase. Formal consult to follow.
[2019-10-08] MEDS ORDERED: MoRPHine SULFATE 2 MG/ML CARP IV PRN (18:06)
[2019-10-08] MEDS: LACTATED RINGER'S 1,000 ML IV SCH ×2 (18:26→22:42)
[2019-10-08] MEDS: POTASSIUM CHLORIDE / WTR 10 MEQ/100 ML PLCT IV SCH ×4 (18:43→22:41)
[2019-10-08] MEDS: KETOROLAC TROMETHAMINE 15 MG/ML VIAL IM PRN (19:41)
[2019-10-09] MEDS: LACTATED RINGER'S 1,000 ML IV SCH ×2 (03:40→08:53)
[2019-10-09] MEDS: KETOROLAC TROMETHAMINE 15 MG/ML VIAL IM PRN (03:40)
[2019-10-09 05:52] LABS: Estimated Average Glucose 143 mg/dl; Hemoglobin A1C 6.6 % (4.5-5.6)
--- NOTE | 2019-10-09 05:53 | Electrocardiogram Report ---
Test Reason : Blood Pressure : / mmHG Vent. Rate : 093 BPM Atrial Rate : 093 BPM P-R Int : 154 ms QRS Dur : 082 ms QT Int : 364 ms P-R-T Axes : 036 042 035 degrees QTc Int : 452 ms Normal sinus rhythm Normal ECG No previous ECGs available Confirmed by Alfredo Ford ([id number]) on 10/09/2019 5:52:59 AM Referred By: REFERRED SELF Confirmed By:Alfredo Ford
[2019-10-09 07:26] LABS: Hematocrit (blood only) 44.6 % (42-52); Hemoglobin 15.2 g/dL (14.0-18.0); Mean Corpuscular Hemoglobin 29.9 pg (25-34); Mean Corpuscular Hgb Conc 34.1 g/dL (32-36); Mean Corpuscular Volume 87.8 fL (80-100); Mean Platelet Volume 11.6 fL (7.4-10.4); Platelet Count 258 K/uL (130-400); RDW Coefficient of Variation 14.9 % (11.5-14.5); RDW Standard Deviation 47.9 fL (36.4-46.3); Red Blood Count 5.08 M/uL (4.7-6.1); White Blood Count 19.25 K/uL (4.8-10.8)
[2019-10-09 07:50] LABS: Albumin Globulin Ratio 0.8 (0.9-2); Albumin Level 3.1 gm/dl (3.4-5.0); BUN Creatinine Ratio 13.6 (10-20); Bilirubin,Total 0.8 mg/dl (0.2-1); Calcium 8.6 mg/dl (8.5-10.1); Creatinine Clr Calc Pharmacy 180.9 ml/min; Est GFR (African American) 136.5; Est GFR (Non-African American) 117.8; Globulin 3.7 gm/dl (2.5-4.0); Magnesium 1.9 mg/dl (1.8-2.4); Phosphorus 2.3 mg/dl (2.5-4.9); Total Protein 6.8 gm/dl (6.4-8.2)
[2019-10-09] MEDS ORDERED: PANTOprazole 40 MG TAB PO SCH (09:00)
[2019-10-09] MEDS ORDERED: ENOXAPARIN INJ 40 MG/0.4 ML SYR SQ SCH (09:00)
[2019-10-09] MEDS ORDERED: lisinopriL 40 MG TAB PO SCH (09:00)
--- NOTE | 2019-10-09 09:36 | Hospitalist Progress Note ---
Date of Service October 09, 2019 Assessment & Plan (1) Abdominal pain: (2) Acute pancreatitis: Abdominal pain, nausea, vomiting Leukocytosis of 29K, trended down to 19k CT abdomen and pelvis suggestive of mild infiltration adjacent to pancreatic tail suggestive of acute pancreatitis Gallbladder ultrasound does not show any gallstones. Lipase was not elevated 132 Symptoms and findings likely due to acute pancreatitis. Patient denied any alcohol use. Cipro and Flagyl ordered in ER. These were not continued Patient reports that his white blood cell count runs high [ranges from 12 K to 17 K] and has had evaluation for possible leukemia/cancer down in [place] with all test coming back negative Considering GI symptoms and patient being a [place] resident, COVID-19 testing was done which was negative Resume p.o. diet advance as tolerated. If tolerates p.o. well, will plan for possible discharge later today (3) Hypokalemia: K is 3.3 likely from poor intake and GI losses on admission Repleted. Potassium is 4 today. Magnesium is 1.9. Phosphorus is 2.3. Replete phos (4) Newly diagnosed diabetes: A1c is 6.6 Patient reports his last check up with his PCP 3 months ago that he did mention his blood glucose was a bit elevated but not diabetic. He does not remember if A1c was done at the time. Counselled patient extensively on diabetes management Consult breastfeeding educator to provide more education and resources Counselled patient on need for lifestyle modification including smoking cessation, weight loss, exercise and diet management. He is interested in doing lifestyle modification over the next few weeks/months Will not discharge on any diabetic meds Patient plan to go back to [place] tomorrow He will follow up with his PCP for further work up of DM and management (5) Obesity (BMI 30-39.9): CT Abd/pelvis suggestive of fatty infiltration of liver Educated patient about this Counselled on need for weight loss Counselled on need for smoking cessation (6) Hypertension: Currently controlled Continue lisinopril Resume home meds on discharged (7) GERD (gastroesophageal reflux disease): Continue pantoprazole (8) DVT prophylaxis: Ambulate Lovenox sq for now Admission and Anticipated Discharge Date Admission Date: October 08, 2019 Subjective Patient seen and examined. Reports abdominal pain, nausea, vomiting is completely resolved. Normal bowel movement was resumed. Review of Systems Constitutional: no fever and no chills Eyes: no problem reported Ear, Nose, Mouth, Throat: no problem reported Respiratory: no cough, no chest congestion, no dyspnea and no dyspnea on exertion Cardiovascular: no chest pain, no chest pain at rest, no dyspnea and no orthopnea Gastrointestinal: no abdominal pain, no nausea, no vomiting and no constipation Genitourinary: no problem reported Musculoskeletal: no problem reported Integumentary: no problem reported Neurologic: no problem reported Physical Exam Constitutional: + well hydrated and + obese; no acute distress Eyes: PERRL, conjunctivae normal, anicteric sclerae ENMT: external ear and nose normal, oropharynx normal Respiratory: normal respiratory effort, lungs clear to auscultation Cardiovascular: RRR, no murmur, no edema Gastrointestinal (Abdomen): Inspection/Auscultation: abdomen normal to inspection and normal bowel sounds; abdomen not distended Percussion/Palpation: abdomen soft; abdomen nontender (Epigastric) Musculoskeletal: no cyanosis or clubbing, extremities motor strength 5/5 Neurologic: PERRL, EOMI, accommodation nl, no face palsy, no dysarthria Psychiatric: A+Ox3, euthymic affect Results & Data Results & Data ([facility]) Vital Signs (Past 12 Hours) Vital Signs Temp Pulse Resp BP Pulse Ox 10/09/19 07:00 37.1 C 79 20 134/62 96 10/08/19 22:02 36.8 C 78 20 147/87 H 96 Laboratory Results Laboratory Results - last 24 hr 10/08/19 10/08/19 10/08/19 09:24 09:24 09:24 WBC 29.27 H RBC 5.82 Hgb 17.6 Hct 50.6 MCV 86.9 MCH 30.2 MCHC 34.8 RDW Std Deviation 47.0 H RDW Coeff of [place]old[place] 14.9 H Plt Count 347 MPV 11.5 H Immature Gran % (Auto) 1.0 Neut % (Auto) 75.6 Lymph % (Auto) 13.2 Gates % (Auto) 10.0 Eos % (Auto) 0.1 Baso % (Auto) 0.1 Neut # (Auto) 22.11 H Lymph # (Auto) 3.86 H Gates # (Auto) 2.92 H Eos # (Auto) 0.04 Baso # (Auto) 0.04 Immature Gran # (Auto) 0.30 H Sodium 137 Potassium 3.3 L Chloride 102 Carbon Dioxide 27 Anion Gap 8.0 BUN 11 Creatinine 0.99 Est Cr Clr Drug Dosing 141.5 Est GFR ( Amer) 114.7 Est GFR (Non-Af Amer) 99.0 BUN/Creatinine Ratio 10.9 Glucose 125 H Estimat Average Glucose 143 Hemoglobin A1c 6.6 H Lactate Calcium 9.7 Phosphorus Magnesium Total Bilirubin 0.7 AST 9 L ALT 29 Alkaline Phosphatase 78 Troponin I < 0.015 Total Protein 8.4 H Albumin 4.2 Globulin 4.2 H Albumin/Globulin Ratio 1.0 Triglycerides Lipase 132 Urine Color Urine Appearance Urine pH Ur Specific [place] Urine Protein Urine Glucose (UA) Urine Ketones Urine Blood Urine Nitrite Urine Bilirubin Urine Urobilinogen Ur Leukocyte Esterase Urine WBC (Auto) Urine RBC (Auto) U Hyaline Cast (Auto) U Epithel Cells (Auto) Urine Bacteria (Auto) COVID-19 PCR 10/08/19 10/08/19 10/08/19 09:33 09:55 12:38 WBC RBC Hgb Hct MCV MCH MCHC RDW Std Deviation RDW Coeff of [place] Plt Count MPV Immature Gran % (Auto) Neut % (Auto) Lymph % (Auto) Gates % (Auto) Eos % (Auto) Baso % (Auto) Neut # (Auto) Lymph # (Auto) Gates # (Auto) Eos # (Auto) Baso # (Auto) Immature Gran # (Auto) Sodium Potassium Chloride Carbon Dioxide Anion Gap BUN Creatinine Est Cr Clr Drug Dosing Est GFR ( Amer) Est GFR (Non-Af Amer) BUN/Creatinine Ratio Glucose Estimat Average Glucose Hemoglobin A1c Lactate 1.3 Calcium Phosphorus Magnesium 2.2 Total Bilirubin AST ALT Alkaline Phosphatase Troponin I Total Protein Albumin Globulin Albumin/Globulin Ratio Triglycerides 154 H Lipase Urine Color Dark Yellow Urine Appearance Clear Urine pH 5.5 Ur Specific [place] 1.023 Urine Protein 2+ H Urine Glucose (UA) Negative Urine Ketones Trace H Urine Blood Trace H Urine Nitrite Negative Urine Bilirubin Negative Urine Urobilinogen Negative Ur Leukocyte Esterase Negative Urine WBC (Auto) 1-5 Urine RBC (Auto) 5-10 H U Hyaline Cast (Auto) 5-10 H U Epithel Cells (Auto) 10-20 H Urine Bacteria (Auto) Negative COVID-19 PCR 10/08/19 10/09/19 10/09/19 14:35 06:29 06:29 WBC 19.25 H D RBC 5.08 Hgb 15.2 Hct 44.6 MCV 87.8 MCH 29.9 MCHC 34.1 RDW Std Deviation 47.9 H RDW Coeff of [place] 14.9 H Plt Count 258 MPV 11.6 H Immature Gran % (Auto) Neut % (Auto) Lymph % (Auto) Gates % (Auto) Eos % (Auto) Baso % (Auto) Neut # (Auto) Lymph # (Auto) Gates # (Auto) Eos # (Auto) Baso # (Auto) Immature Gran # (Auto) Sodium 141 Potassium 4.0 D Chloride 108 H Carbon Dioxide 26 Anion Gap 7.0 BUN 11 Creatinine 0.78 Est Cr Clr Drug Dosing 180.9 Est GFR ( Amer) 136.5 Est GFR (Non-Af Amer) 117.8 BUN/Creatinine Ratio 13.6 Glucose 116 H Estimat Average Glucose Hemoglobin A1c Lactate Calcium 8.6 Phosphorus 2.3 L Magnesium 1.9 Total Bilirubin 0.8 AST 10 L ALT 22 Alkaline Phosphatase 62 Troponin I Total Protein 6.8 Albumin 3.1 L Globulin 3.7 Albumin/Globulin Ratio 0.8 L Triglycerides Lipase 105 Urine Color Urine Appearance Urine pH Ur Specific [place] Urine Protein Urine Glucose (UA) Urine Ketones Urine Blood Urine Nitrite Urine Bilirubin Urine Urobilinogen Ur Leukocyte Esterase Urine WBC (Auto) Urine RBC (Auto) U Hyaline Cast (Auto) U Epithel Cells (Auto) Urine Bacteria (Auto) COVID-19 PCR NEGATIVE (1) Abdominal pain Abdominal location: epigastric Qualified Code(s): R10.13 - Epigastric pain (2) Acute pancreatitis Acute pancreatitis complication: unspecified Pancreatitis type: unspecified pancreatitis type Qualified Code(s): K85.90 - Acute pancreatitis without necrosis or infection, unspecified
[2019-10-09] MEDS ORDERED: POT PHOSPHATE MONOBASIC W/ SOD TAB PO ONE (10:00)
--- NOTE | 2019-10-09 13:08 | Discharge Summary ---
Date of Service October 09, 2019 Admission HPI Per Admitting Provider 34-year-old man with hypertension, GERD, morbid obesity who presented with abdominal pain, nausea and vomiting. Patient reported that abdominal pain started 4 days ago associated with fatigue. Pain is mostly in the epigastrium and sometimes on the left side of abdomen, initially mild and worsened over the last day, at its worst can get up to 7-8 over 10, not referred. Was associated with nausea and multiple bouts of nonbloody emesis yesterday as well as chills and profuse sweating overnight. Patient denied any diarrhea. Has not had any bowel movement for few days until coming to the ER where he has had mucousy stool. Denied any hematemesis, melena, hematochezia. Denied any fevers Denied any change in diet Denied any chest pain, cough, shortness of breath Denied any headaches, dizziness, blurry vision Denies any contact with anybody with COVID Patient lives in [place], currently visiting family in [place] in the past month. Denied any alcohol use. Reports he smokes cigar 1/day Also uses marijuana which he says he grows himself. Denied any illicit drug use. Admission Exam Per Admitting Provider Constitutional: + well hydrated and + obese; no acute distress Eyes: PERRL, conjunctivae normal, anicteric sclerae ENMT: external ear and nose normal, oropharynx normal Respiratory: normal respiratory effort, lungs clear to auscultation Cardiovascular: RRR, no murmur, no edema Gastrointestinal (Abdomen): Inspection/Auscultation: abdomen normal to inspection and normal bowel sounds; abdomen not distended Percussion/Palpation: + abdomen tender (Epigastric) and abdomen soft; no guarding and abdomen not rigid Musculoskeletal: no cyanosis or clubbing, extremities motor strength 5/5 Neurologic: PERRL, EOMI, accommodation nl, no face palsy, no dysarthria Psychiatric: A+Ox3, euthymic affect Principal Diagnosis Acute pancreatitis Newly diagnosed Diabetes Obesity (BMI 39) Discharge Exam Constitutional + well hydrated and + obese; no acute distress Eyes PERRL, conjunctivae normal, anicteric sclerae ENMT external ear and nose normal, oropharynx normal Respiratory normal respiratory effort, lungs clear to auscultation Cardiovascular RRR, no murmur, no edema Gastrointestinal (Abdomen) Inspection/Auscultation: abdomen normal to inspection and normal bowel sounds; abdomen not distended Percussion/Palpation: abdomen soft; abdomen nontender (Epigastric) Musculoskeletal no cyanosis or clubbing, extremities motor strength 5/5 Neurologic PERRL, EOMI, accommodation nl, no face palsy, no dysarthria Psychiatric A+Ox3, euthymic affect Discharge Data Allergies Allergy/AdvReac Type Severity Reaction Status Date / Time amoxicillin AdvReac Intermediate Nausea Verified 10/08/19 13:02 Consultations 10/08/19 12:36 ED Decision to Admit Stat 10/08/19 14:01 Consult Gastroenterology Routine Ordered Studies 10/08/19 09:06 CT abd pelvis IV con only Stat FINDINGS: Lung bases are unremarkable. No pneumatosis, free air or portal venous gas is present. There is fatty infiltration of the liver. No biliary or pancreatic ductal dilatation is noted. There is mild infiltration adjacent to the pancreatic tail. There is slight prominence of the pancreatic tail. No peripancreatic fluid collection is noted. The gland enhances homogeneously. The spleen, adrenal glands and kidneys are normal. There is no hydronephrosis or hydroureter. No pericholecystic infiltration is present. There is no evidence for a bowel obstruction. The caliber and wall thickness of small and large bowel are normal the appendix is normal. There is mild infiltration of the subcutaneous tissues of the lower back which probably reflects soft tissue edema. A tiny metallic density is noted along the superficial aspect of the paraspinal musculature. There are bilateral L5 pars defects without significant anterolisthesis of L5 on S1. Suspected central canal stenosis at L3-L4 suboptimally assessed by CT. There is suspected disc bulges at L4-L5. IMPRESSION: 1. Mild infiltration adjacent to the pancreatic tail. This suggests acute pancreatitis. 2. Normal appendix. No bowel obstruction. 3. Fatty infiltration of the liver. 4. Multilevel degenerative changes within lumbar spine with suspected central canal stenosis at L3-L4 which is suboptimally assessed by CT. 10/08/19 10:59 US gallbladder Stat FINDINGS: Gallbladder is normal. Common bile duct 5 mm. Fatty infiltration of liver. Pancreas is unremarkable. The right kidney is negative for hydronephrosis. IMPRESSION: 1. Fatty infiltration of liver. Hospital Course (1) Abdominal pain: (2) Acute pancreatitis: Abdominal pain, nausea, vomiting Leukocytosis of 29K, trended down to 19k CT abdomen and pelvis suggestive of mild infiltration adjacent to pancreatic tail suggestive of acute pancreatitis Gallbladder ultrasound does not show any gallstones. Lipase was not elevated 132 Symptoms and findings likely due to acute pancreatitis. Patient denied any alcohol use. Patient reports that his white blood cell count runs high [ranges from 12 K to 17 K] and has had evaluation for possible leukemia/cancer down in [place] with all test coming back negative Considering GI symptoms and patient being a [place] resident, COVID-19 testing was done which was negative Was managed with iv fluids and medications Evaluated by Gastroenterology who recommended patient to follow up with GI in [place] if symptoms recur. Also recommended discontinuing HCTZ or changing to another drug Patient symptoms resolved. (3) Hypokalemia: K is 3.3 likely from poor intake and GI losses on admission Repleted. (4) Newly diagnosed diabetes: A1c is 6.6 Patient reports his last check up with his PCP 3 months ago that he did mention his blood glucose was a bit elevated but not diabetic. He does not remember if A1c was done at the time. Counselled patient extensively on diabetes management Consult consulting psychologist to provide more education and resources Counselled patient on need for lifestyle modification including smoking cessation, weight loss, exercise and diet management. He is interested in doing lifestyle modification over the next few weeks/months Will not discharge on any diabetic meds Patient plan to go back to [place] tomorrow He will follow up with his PCP for further work up of DM and management (5) Obesity (BMI 30-39.9): CT Abd/pelvis suggestive of fatty infiltration of liver Educated patient about this Counselled on need for weight loss Counselled on need for smoking cessation (6) Hypertension: Currently controlled Continue lisinopril HCTZ discontinued for now. Has not received it since admission and BP has been controlled If needed, a different antihypertensive may be started (7) GERD (gastroesophageal reflux disease): Continue pantoprazole Total Time Total Time Spent Total Time Spent (In Minutes): 50 Total Time Includes: Examination of the Patient, Discharge Planning, Medication Reconciliation and Communication With Other Providers Discharge Plan Discharge Items Patient Disposition: Home - Self-Care Reason For Visit: Abdominal pain Discharge Diagnosis: Acute pancreatitis Newly diagnosed Diabetes Obesity (BMI 39) Activity: Resume your previous activity Non-emergency contact: Primary Care Provider Call non-emergency contact if: you have any medication questions Follow-up/Referrals: PCP,NO [Primary Care Provider] - Diet: Carb Consistent or DM2, Heart Healthy and Low Fat Addtl Attending Provider Instructions: Mr Branch. Carlson came to the hospital complaining of abdominal pain, nausea and vomiting. You were evaluated and found to have acute pancreatitis. This was managed with medications with resolution of symptoms. Your hydrochlorothiazide was discontinued for now per Wire Worker recommendation. Please follow up with your Primary doctor Evaluation also showed new diagnosis of diabetes with HbA1c of 6.6. You were counselled extensively on lifestyle modifications including diet management, exercise, weight loss etc. You are not currently discharged on any medications for this. Please follow up with your Primary doctor for further evaluation and management as needed. It was a pleasure taking care of you. Pending Studies at Discharge: No Stand-Alone Forms: [facility], Smoking Cessation Medications and DC Order Prescriptions: Continued cyclobenzaprine 10 mg tablet 10 mg PO DIRECTED PRN (Reason: Muscle Spasm) RF: 0 pantoprazole 40 mg tablet,delayed release (DR/EC) 40 mg PO DAILY RF: 0 lisinopril 40 mg tablet 40 mg PO DAILY RF: 0 Discontinued hydrochlorothiazide 25 mg tablet 25 mg PO QAM RF: 0 Discharge Orders: Discharge Order (Routine); Ordered 10/09/19 Ordered By: Jennifer Carlisle/Other Patient Handouts: Long-Term Complications of Diabetes, Healthy Meals for Diabetes, Diabetes: The Benefits of Exercise, A1C Admission Data Admit Date/Time: 10/08/19 14:02 Attending Provider: Jennifer iSdhu I. Admit Provider: Jennifer Sidhu I. Primary Care Provider: PCP,NO Other Providers: Sophia Mijares ; Rom Watson Other Interventions: Discharge Summary Assessment (RN) Last Done: 10/09/19 13:09 DC Date/Time DO NOT enter until pt leaves facility: 10/09/19 13:26
== END 2019-10-09 13:26 | disposition home or self-care (01) | DRG 440 ==
LOC: ED 08:36 → 2N 14:02